=== PATIENT | female | born 1965 | race Caucasian/White ===

== ENCOUNTER → 2016-12-19 | Outpatient (CLI) | payer OTHER ==
[~2016-12-19] MED LIST: AMBIEN PO; CALCIUM + VITAM1 TAB PO; CARAFATE1 G PO; KLONOPIN0.5 MG PO; LIPITOR PO; LISINOPRIL10 MG PO; LOPRESSOR; LORTAB 7.5-5001 TAB PO; NAPROXEN PO; NEXIUM PO; NORCO 5/325 TAB1 TAB PO; PHENERGAN PO; PHENERGAN25 MG PO; PREVACID; PREVACID PO; PRISTIQ 50 MG; SYNTHROID112 MCG PO; ZOLOFT100 MG PO; ZOLOFT50 MG PO; [UNRECOGNIZED DRUG - REMARK]
--- NOTE | ~2016-12-19 | MY29 ---
[facility] A Service of [facility] & [facility] RADIOLOGY TEXT RESULTS PATIENT: SHAUNA ORTEGA LOCATION: [facility] : 61 UNIT #: [id number] AGE: [address]: Cleveland Mishra MD SEX: F ORDER DR: [id number] [facility] [address] [place], [place] [address] [id number] O MR#: [id number] Acc #: [id number] NAME: SHAUNA ORTEGA : 1965 SEX: F STUDY DATE/TIME: 12/19/2016 14:30 UNIT: [facility] ROOM: STUDY DESCRIPTION: MY JENNIFER SCREENING W/ CAD BILAT Attending Physician: Cleveland Mishra M.D. Ordering Physician: Cleveland Mishra M.D. Primary Care Physician: Arvin Watson M.D. MEDICAL IMAGING REPORT This report is preliminary unless electronic signature is present EXAM Digital screening mammogram, 12/19/2016; [facility]. HISTORY 51-year-old woman, no risk elevation. Annual screen. COMPARISON Comparison mammograms date to 05/25/2005 with most recent 04/15/2015. TECHNIQUE Digital imaging of each breast was completed utilizing screening protocol. Review includes FDA-approved CAD device. FINDINGS Breast parenchyma is partially fatty replaced with residual parenchymal opacities centrally located in each breast. Mild parenchymal dominance left breast is stable. I see no developing mass and no interval occurring microcalcifications. There is no suspicious architectural deformity. IMPRESSION Benign mammogram. Annual screening recommended. Patients over the age of 40 are entered into a reminder system with target due date for the next mammogram. A result letter will also be sent to the patient. BIRADS: 2 Benign findings. Dictated by... Maximus Portillo M.D. THIS IS AN ELECTRONICALLY VERIFIED REPORT [facility] A Service of [facility] & [facility] RADIOLOGY TEXT RESULTS PATIENT: SHAUNA ORTEGA LOCATION: [facility] : 61 UNIT #: [id number] AGE: [address]: Cleveland Mishra MD SEX: F ORDER DR: Maximus Portillo M.D. at 12/20/2016 8:05 AM RUTHANN/magali TD: 12/19/2016 21:44 JOB #: [id number] MEDICAL IMAGING REPORT Page 1 of 1 COPY
== END | disposition home or self-care (01) ==
LOC: CWCC 14:08
DX: Z12.31 Encounter for screening mammogram for malignant neoplasm of breast (principal)
CPT/HCPCS: G0202